=== PATIENT | female | born 1940 | race African-American/Black ===

== ENCOUNTER → 2017-10-23 | Day surgery (SDC) | payer MEDICARE, BC ==
--- NOTE | 2017-10-23 15:34 | RAD ---
RIGHT HIP 2 VIEWS: HISTORY: Pain. COMPARISON: None. FINDINGS: There is mild to moderate loss of joint space height. Contour of the femoral head is maintained. No fracture. IMPRESSION: Mild to moderate degenerative change. POS: PUJA
== END ==
LOC: RAD 14:58 → ERS 14:58 → EDSTATUS 15:34
DX: M25.551 Pain in right hip (principal); Z88.8 Allergy status to other drugs, medicaments and biological substances; Z88.6 Allergy status to analgesic agent; W19.XXXA Unspecified fall, initial encounter

== ENCOUNTER 2018-05-29 17:03 | Emergency (ER) | payer MEDICARE, BC ==
[2018-05-29] MEDS ORDERED: ALPRAZolam 0.25 MG TAB ONE (19:13)
== END 2018-05-29 19:30 | disposition home or self-care (01) ==
LOC: ERS 17:03
DX: E10.42 Type 1 diabetes mellitus with diabetic polyneuropathy (principal); F41.9 Anxiety disorder, unspecified; E78.5 Hyperlipidemia, unspecified; I10 Essential (primary) hypertension; Z79.84 Long term (current) use of oral hypoglycemic drugs; Z79.899 Other long term (current) drug therapy
CPT/HCPCS: 99283

== ENCOUNTER 2020-02-07 15:04 | Inpatient (IN) | payer MEDICARE, BC ==
[2020-02-07 15:38] LABS: Bilirubin Negative (Negative); Blood, Urine Negative (Negative); Glucose, Urine (Dipstick) Negative (Negative); Ketone, Urine Negative (Negative); Leukocyte Moderate (Negative); Nitrite Negative (Negative); Protein, Urine (Dipstick) Negative (Neg-Trace); Urobilinogen 0.2 mg/dL (Less than 2); pH, Urine 5.5 (5.0-9.0)
[2020-02-07 15:42] LABS: Clarity Clear (Clear)
[2020-02-07] MEDS ORDERED: Cefepime 2 GM VIAL ONE (15:43)
[2020-02-07] MEDS ORDERED: Sodium Chloride 0.9% 100 ML ONE (15:43)
[2020-02-07 15:44] LABS: Bacteria/HPF 4+ HPF (None Seen); RBC/HPF None Seen HPF (0-3); Squamous Epithelial 0-3 HPF (0-3); WBC/HPF 21-50 HPF (0-3)
[2020-02-07 15:44] LABS: #Lymphocytes 1.4 thou/uL (1.20-3.40); #Monocytes 0.7 thou/uL (0.11-0.59); #Neutrophils 17.7 thou/uL (1.40-6.50); %Basophils 0.2 % (0.0-1.0); %Eosinophils 0.1 % (0.0-10.0); %Lymphocytes 7.2 % (21.0-51.0); %Monocytes 3.7 % (0.0-10.0); %Neutrophils 88.8 % (42.0-75.0); Hemoglobin 11.3 g/dL (12.0-16.0); Mean Corpuscular Hemoglobin 27.8 pg (27.0-31.0); Mean Corpuscular Volume 84.3 fL (78.0-98.0); Mean Platelet Volume 10.5 fL (7.4-10.4); Platelet Count 218 thou/uL (130-400); RBC Distribution Width 13.6 % (11.5-14.5); Red Blood Cell (RBC) Count 4.07 mill/uL (4.20-5.40); White Blood Cell (WBC) Count 19.9 thou/uL (4.8-10.8)
--- NOTE | 2020-02-07 15:44 | RAD ---
PORTABLE CHEST ONE VIEW: 02/07/20 at 3:35 p.m. HISTORY: Fever. COMPARISON: 05/10/13. FINDINGS: The heart size is borderline. The aorta is tortuous. The lungs are well expanded without lobar consol idation, pneumothoraces, jt pulmonary edema or pleural effusions. IMPRESSION: No radiographic evidence of acute cardiopulmonary process. POS: AH
[2020-02-07 16:06] LABS: ALT (SGPT) 7 U/L (8-55); AST (SGOT) 21 U/L (5-34); Albumin 3.6 g/dL (3.4-4.8); Alkaline Phosphatase 68 U/L (40-110); Anion Gap 16 mmol/L (10-20); BUN (Urea Nitrogen) 56 mg/dL (9.8-20.1); Bilirubin, Total 0.7 mg/dL (0.2-1.2); CK (CPK) 262 U/L (29-168); Calc. Creatinine Clearance 0 mL/min (70-130); Calcium 9.3 mg/dL (7.8-10.44); Carbon Dioxide 25 mmol/L (23-31); Chloride 105 mmol/L (98-107); Globulin 4.2 g/dL (2.4-3.5); Glucose 215 mg/dL (83-110); Magnesium 2.2 mg/dL (1.6-2.6); Potassium 3.3 mmol/L (3.5-5.1); Protein, Total 7.8 g/dL (6.0-8.3); Sodium 143 mmol/L (136-145)
[2020-02-07] MEDS ORDERED: Vancomycin 1 GM/200 ML BAG ONE (16:12)
--- NOTE | 2020-02-07 16:12 | RAD ---
Exam: XR Knee Rt 4 View STANDARD HISTORY: Trauma. Fever. COMPARISON: None FINDINGS: There is tricompartment osteophytosis. Mild narrowing of the medial and lateral joint compartments is present. No fracture, dislocation, or other osseous abnormality is identified. Small to moderate-sized suprapatellar joint effusion is present. There are prominent calcifications seen poste rior to the knee joint which could be related to intra-articular loose bodies within a Branch's cyst. However, this cannot be confirmed on this exam. Vascular calcifications are seen posterior to t he knee. IMPRESSION: 1. Osteoarthritis without evidence of an acute osseous abnormality. 2. Small to moderate-sized suprapatellar joint effusion. 3. Calcifications posterior to the right knee which may represent intra-articular loose bodies within a Branch's cyst.
[2020-02-07] MEDS ORDERED: Calcium Carbonate 500 MG ChewTAB PO PRN (16:43)
[2020-02-07] MEDS ORDERED: Bisacodyl 10 MG SUPP PR PRN (16:43)
[2020-02-07] MEDS ORDERED: Ondansetron PF 4 MG/2 ML Vial IVP PRN (16:43)
[2020-02-07] MEDS ORDERED: Dextrose 50% Abboject 50 ML SYRINGE SLOW IVP PRN (16:43)
[2020-02-07] MEDS ORDERED: ALPRAZolam 0.5 MG TAB PO PRN (16:43)
[2020-02-07] MEDS ORDERED: Guaifenesin DM 100-10/5 ML UDCUP PO PRN (16:43)
[2020-02-07] MEDS ORDERED: Dextrose 5% in Water 1,000 ML IV PRN (16:43)
[2020-02-07] MEDS ORDERED: Senokot S 8.6-50 MG TAB PO PRN (16:43)
[2020-02-07] MEDS ORDERED: HumaLOG 300 UNITS/3 ML VIAL SC PRN (16:43)
[2020-02-07] MEDS ORDERED: Diltiazem 125 MG in Sodium Chloride 0.9% 100 ML IVPB SCH (16:45)
[2020-02-07] MEDS ORDERED: Diltiazem 125 MG/25 ML ONE (17:06)
[2020-02-07] MEDS: Pregabalin 75 MG CAP PO SCH (20:26)
[2020-02-07] MEDS: Metoprolol Tartrate 100 MG TAB PO SCH (20:27)
[2020-02-07] MEDS: Acetaminophen 325 MG TAB PO PRN (20:27)
[2020-02-07] MEDS: Sodium Chloride 0.9% 1,000 ML IV SCH (20:29)
--- NOTE | 2020-02-07 20:43 | HP ---
REASON FOR ADMISSION: AFib with RVR, sepsis, UTI. HISTORY OF PRESENTING ILLNESS: The patient gives history of having fallen on the floor around 8:30 in the morning. She was apparently on the floor until 2:30, when she was found she was very cold on the floor to touch and was very anxious as well. The family made her feel better and she got to sleep a little. All of this happened yesterday. This morning, granddaughter called her, but she did not answer the phone. Neighbor went to see her, she was incoherent and was talking out of it. The patient also developed chills and fever. EMS was summoned and the patient was brought here. No complaints of abdominal pain, nausea, or vomiting. No cough or expectoration as such. No complaints of chest pain or palpitation. PAST MEDICAL AND SURGICAL HISTORY: Diabetes mellitus type 2, history of bowel obstruction with surgery, dyslipidemia, hypertension, cataract surgery, appendectomy, cholecystectomy, hysterectomy, anxiety disorder, chronic back pain. CURRENT MEDICATIONS: The patient takes: 1. Hydrochlorothiazide 25 mg daily. 2. Metformin 500 mg daily. 3. Rosuvastatin 5 mg daily. 4. Amitiza 8 mcg twice daily. 5. Lyrica 150 mg daily. 6. Metoprolol 100 mg twice daily. 7. Levothyroxine 112 mcg p.o. daily. 8. Premarin 0.3 mg daily. 9. Procardia XL 60 mg p.o. daily. 10. Nexium 40 mg p.o. daily. ALLERGIES: ALLERGIC TO ATORVASTATIN, LISINOPRIL, AND MELOXICAM. PERSONAL HISTORY: Does not abuse alcohol or drugs. No history of smoking. She lives with her son. Ambulates with a walker, but for the most part, she forgets to take the walker with her. FAMILY HISTORY: Mother at the age of 85 from natural causes. Father at the age of 65 from unknown cause. CODE STATUS: The patient wants to be do not attempt to resuscitate. Power of assistant city attorney is her son, Mr. Mihai Brizuela. REVIEW OF SYSTEMS: CONSTITUTIONAL: Negative for weight loss or gain, ability to conduct usual activities. SKIN: Negative for rash, itching. EYES: Negative for double vision, pain. ENT/MOUTH: Negative for nose bleeding, neck stiffness, pain, tenderness. CARDIOVASCULAR: Negative for palpitations, dyspnea on exertion, orthopnea. RESPIRATORY: Negative for shortness of breath, wheezing, cough, hemoptysis, fever or night sweats. GASTROINTESTINAL: Negative for poor appetite, abdominal pain, heartburn, nausea, vomiting, constipation, or diarrhea. GENITOURINARY: Negative for urgency, frequency, dysuria, nocturia. MUSCULOSKELETAL: Negative for pain, swelling. NEUROLOGIC/PSYCHIATRIC: Negative for anxiety, depression. ALLERGY/IMMUNOLOGIC: Negative for skin rash, bleeding tendency. PHYSICAL EXAMINATION: GENERAL: The patient is an 80-year-old female, who is currently in mild distress from chills and rigors. VITAL SIGNS: Blood pressure 132/70, pulse 90 to 130 per minute, respiratory rate 24 per minute, temperature 102.7 degrees Fahrenheit, saturating 93% on 2 L nasal cannula. NECK: Supple. No elevated JVD. HEENT: Eyes, extraocular muscles intact. Pupils reacting to light. Oral cavity, mucous membranes are dry. No exudates or congestion. CARDIOVASCULAR SYSTEM: S1, S2 heard. Irregular rhythm. RESPIRATORY SYSTEM: Air entry 1+ bilateral. Scattered rhonchi plus no rales or wheezes. ABDOMEN: Soft. Bowel sounds heard. No tenderness, rigidity, or guarding. EXTREMITIES: No peripheral edema or calf tenderness. VASCULAR SYSTEM: Peripheral pulses 1+, bilateral. No ischemic ulcerations or gangrene. CENTRAL NERVOUS SYSTEM: No gross focal motor deficits noted. The patient is alert, awake, and oriented well. PSYCHIATRIC SYSTEM: The patient's mood is a bit anxious. Otherwise, no hallucinations or delusions. LABORATORY DATA: EKG done shows AFib with RVR at 136 beats per minute. There is Q-wave seen in lead II, III, aVF, and poor R-wave progression. White count of 19, H and H 11 and 34, platelet count 218, MCV 84 with 88% neutrophils. Potassium 3.3, BUN 56, creatinine 2.0, serum bicarb 25, serum glucose 215. Liver enzymes are within normal limits. CK level is 262. Albumin is 3.6. TSH is very low. Procalcitonin 0.40. UA shows moderate leukocyte esterase with 4+ bacteria. Right knee 4-view x-ray done shows signs of osteoarthritis. There is moderate-sized suprapatellar joint effusion. There is calcification posterior to the right knee, which may represent intra-articular loose bodies within a Branch cyst. Chest x- ray done shows no acute cardiopulmonary process. CLINICAL IMPRESSION AND PLAN: The patient will be admitted to telemetry for atrial fibrillation with rapid ventricular response, sepsis, urinary tract infection, acute kidney injury as well. The patient will be gently hydrated with normal saline at 60 mL/hour. She has received a liter of IV fluid in the ER and is currently feeling short of breath. We will try to rate control her atrial fibrillation with rapid ventricular response and volume hydrate her in the morning. She will be receiving 15 mg IV push Cardizem and 5 mg an hour Cardizem drip. Blood and urine cultures have been obtained in the ER. She will be on cefepime and vancomycin for now. We will continue Xanax p.r.n., Premarin, Lopressor at 100 mg twice daily that is the home dose, Lyrica, VESIcare for now. Echo with 2D Doppler will be obtained for left ventricular function and to rule out thrombus. COVID-19 PCR is pending. Airborne and droplet precautions can be discontinued if her COVID PCR is negative. It is unclear if the patient had recent change in her levothyroxine dose, repeat TSH will be obtained in the morning along with free T3 and free T4. One dose of potassium replacement will be done for now. Her CK levels are stable for now, though she was on the floor for nearly 6 hours yesterday. Job ID: [id number] MTDD
[2020-02-07 23:06] VITALS: BMI 27.3
[2020-02-07] MEDS: traMADol HCl 50 MG TAB PO PRN (23:44)
[2020-02-08] MEDS ORDERED: Cefepime 1 GM in Sodium Chloride 0.9% 100 ML IVPB SCH (02:00)
[2020-02-08] MEDS: Acetaminophen 325 MG TAB PO PRN ×2 (03:11→21:14)
[2020-02-08] MEDS: Cefepime 1 GM in Sodium Chloride 0.9% 100 ML IVPB SCH ×2 (03:11→14:08)
[2020-02-08 03:33] LABS: SARS-CoV-2 MS2 Positive; SARS-CoV-2 N Gene Negative; SARS-CoV-2 S Gene Negative; SARS-CoV-2 by NAA Not Detected (NotDetected); SARS-CoV-2 orf1ab Negative
[2020-02-08 04:57] LABS: #Lymphocytes 1.8 thou/uL (1.20-3.40); #Monocytes 1.4 thou/uL (0.11-0.59); #Neutrophils 14.3 thou/uL (1.40-6.50); %Basophils 0.2 % (0.0-1.0); %Eosinophils 0.1 % (0.0-10.0); %Lymphocytes 10.4 % (21.0-51.0); %Neutrophils 81.3 % (42.0-75.0); Hemoglobin 9.2 g/dL (12.0-16.0); Mean Corpuscular HGB CONC 32.4 g/dL (32.0-36.0); Mean Corpuscular Hemoglobin 27.4 pg (27.0-31.0); Mean Corpuscular Volume 84.7 fL (78.0-98.0); Mean Platelet Volume 10.6 fL (7.4-10.4); Platelet Count 191 thou/uL (130-400); RBC Distribution Width 13.6 % (11.5-14.5); Red Blood Cell (RBC) Count 3.37 mill/uL (4.20-5.40); White Blood Cell (WBC) Count 17.6 thou/uL (4.8-10.8)
[2020-02-08 05:24] LABS: Anion Gap 14 mmol/L (10-20); BUN (Urea Nitrogen) 57 mg/dL (9.8-20.1); Calc. Creatinine Clearance 30 mL/min (70-130); Calcium 8.4 mg/dL (7.8-10.44); Carbon Dioxide 23 mmol/L (23-31); Chloride 106 mmol/L (98-107); Glucose 164 mg/dL (83-110); Potassium 3.3 mmol/L (3.5-5.1); Sodium 140 mmol/L (136-145)
[2020-02-08 05:37] LABS: Thyroid Stimulating Hormone Less than 0.0025 uIU/mL (0.35-4.94)
[2020-02-08] MEDS ORDERED: Levothyroxine Sodium 112 MCG TAB PO SCH (06:00)
[2020-02-08 06:33] LABS: Free T4 (Free Thyroxine) 2.24 ng/dL (0.70-1.48)
[2020-02-08] MEDS: Pregabalin 75 MG CAP PO SCH ×3 (08:52→20:43)
[2020-02-08] MEDS: Potassium Chloride 20 MEQ TAB PO SCH ×2 (08:53→17:13)
[2020-02-08] MEDS: Estrogens, Conjugated 0.3 MG TAB PO SCH (08:53)
[2020-02-08] MEDS: Trospium 20 MG TAB PO SCH (08:53)
[2020-02-08] MEDS: Metoprolol Tartrate 100 MG TAB PO SCH (08:53)
[2020-02-08] MEDS ORDERED: Fish Oil 1,000 MG CAP PO SCH (09:00)
[2020-02-08] MEDS: Sodium Chloride 0.9% 1,000 ML IV SCH (11:49)
[2020-02-08] MEDS: HumaLOG 300 UNITS/3 ML VIAL SC PRN ×2 (11:54→17:13)
--- NOTE | 2020-02-08 13:02 | CON ---
DATE OF CONSULTATION: HISTORY OF PRESENT ILLNESS: The patient is an 80-year-old woman, who presented after having a fall. The patient has a history of hypertension and diabetes mellitus. The patient was in her usual state of health when she had a fall. The patient denied having any chest discomfort. She did report having low-grade fever. She denied having any palpitations. The patient was admitted for further evaluation. The patient denies having any history of palpitations or chest discomfort. PAST MEDICAL HISTORY: 1. Diabetes mellitus. 2. Hypertension. 3. Thyroid disorder. 4. Dyslipidemia. PAST SURGICAL HISTORY: Appendectomy, cholecystectomy, hysterectomy,and cataract surgery. MEDICATIONS: 1. Hydrochlorothiazide 25 daily. 2. Metformin 500 daily. 3. Crestor 5 at bedtime. 4. Lyrica 150 daily. 5. Metoprolol 100 twice a day. 6. Procardia 60 XL daily. 7. Synthroid 112 mcg daily. 8. Nexium 40 daily. ALLERGIES: LIPITOR, LISINOPRIL, AND MELOXICAM. SOCIAL HISTORY: Nonsmoker. FAMILY HISTORY: No strong family history of heart disease. REVIEW OF SYSTEMS: Ten-point system is otherwise unremarkable. No history of easy bruising or bleeding. She has not had any previous fall in the past several years. PHYSICAL EXAMINATION: GENERAL: Obese woman, in no acute distress. VITAL SIGNS: Blood pressure 103/53. NECK: Showed no jugular venous distention. LUNGS: Clear to auscultation. HEART: Regular rate and rhythm. Normal S1, S2. No murmurs. ABDOMEN: Nondistended. EXTREMITIES: Show no edema. VASCULAR: Radial pulses are 2+. LABORATORY RESULTS: White blood cell count 17.6, hemoglobin 9.2, hematocrit 28.5, platelets 191. Sodium is 140, potassium 3.3, chloride 106, bicarbonate 23, BUN 57, creatinine 1.78. Troponin was 0.016. Her T4 was 2.24, T3 was 1.99. EKG atrial fibrillation with a rapid ventricular response and possible Q-waves in the inferior leads suggestive of an inferior infarct. IMPRESSION: 1. Atrial fibrillation. 2. Diabetes mellitus. 3. Hypertension. 4. History of thyroid disorder. 5. Urinary tract infection. 6. Renal insufficiency. PLAN: This patient presents after a fall, she was noted to be in new onset atrial fibrillation and have a urinary tract infection. The patient converted with IV Cardizem. Would continue the patient on Toprol. She has a CHADS-VASc score of 4. It would be recommend the patient be placed on low-dose Eliquis. We will check the patient's echocardiogram. We will follow this patient with you through her hospitalization. Job ID: [id number] MTDD
[2020-02-08] MEDS ORDERED: Polyethylene Glycol 3350 17 GM Packet PO PRN (13:22)
--- NOTE | 2020-02-08 13:27 | PDOC.HOSPP ---
- Subjective Encounter Date: 02/08/20 (f/u UTI) Encounter Time: 13:25 Subjective: Pt reports that she is feeling better. States she wasnt feeling bad but fell at home, which led to her being here. States her appetite is back. - Objective Vital Signs & Weight: Vital Signs (12 hours) Temp Pulse Resp BP BP Pulse Ox 02/08/20 11:32 98.6 F 77 19 103/53 L 02/08/20 09:30 131/69 02/08/20 07:40 98.2 F 80 20 116/59 L 97 02/08/20 03:48 100.4 F H 96 16 106/54 L 96 Weight Weight 174 lb 9 oz I&O: 02/07/20 02/08/20 02/09/20 06:59 06:59 06:59 Intake Total 520 Output Total 100 Balance 420 Result Diagrams: 02/08/20 04:24 02/08/20 04:24 Additional Labs: Accuchecks 02/08/20 02/08/20 02/07/20 11:36 06:29 21:31 POC Glucose 187 H 168 H 220 H EKG Reviewed by me: Yes (tele - sinus 70-80's) Hospitalist ROS - Medication Medications: Active Medications Generic Name Dose Route Start Last Admin Trade Name Freq PRN Reason Stop Dose Admin Acetaminophen 650 mg 02/07/20 16:43 02/08/20 03:11 Acetaminophen 325 Mg Tab PO 650 mg Q4H PRN Administration Headache/Fever/Mild Pain (1-3) Alprazolam 0.5 mg 02/07/20 16:43 02/07/20 20:28 Alprazolam 0.5 Mg Tab PO 0.5 mg TID PRN Administration Anxiety Estrogens Conjugated 0.3 mg 02/08/20 09:00 02/08/20 08:53 Estrogens, Conjugated 0.3 Mg Tab PO 0.3 mg DAILY KADY Administration Sodium Chloride 1,000 mls @ 60 mls/hr 02/07/20 16:45 02/08/20 11:49 Normal Saline 0.9% IV 1,000 mls .[id number] KADY Administration Cefepime HCl 1 gm/ Sodium 100 mls @ 200 mls/hr 02/08/20 02:00 02/08/20 03:11 Chloride IVPB 100 mls 0200,1400 KADY Administration Insulin Human Lispro 0 units 02/07/20 16:43 02/08/20 11:54 Humalog 300 Units/3 Ml Vial SC 2 unit .MODERATE SLIDING SC PRN Administration Moderate Correctional Scale Levothyroxine Sodium 112 mcg 02/08/20 06:00 02/08/20 05:39 Levothyroxine Sodium 112 Mcg Tab PO 112 mcg 0600 KADY Administration Pantoprazole Sodium 40 mg 02/08/20 09:00 02/08/20 08:53 Pantoprazole 40 Mg Tab PO 40 mg DAILY KADY Administration Potassium Chloride 40 meq 02/08/20 08:00 02/08/20 08:53 Potassium Chloride 20 Meq Tab PO 02/08/20 17:01 40 meq BID-WM KADY Administration Pregabalin 150 mg 02/07/20 21:00 02/08/20 08:52 Pregabalin 75 Mg Cap PO 150 mg BID KADY Administration Sodium Chloride 10 ml 02/08/20 09:00 02/08/20 08:54 Flush - Normal Saline 10 Ml Syringe IVF 10 ml Q12HR KADY Administration Tramadol HCl 50 mg 02/07/20 23:35 02/07/20 23:44 Tramadol Hcl 50 Mg Tab PO 50 mg TID PRN Administration Pain Trospium 20 mg 02/08/20 09:00 02/08/20 08:53 Trospium 20 Mg Tab PO 20 mg DAILY KADY Administration - Exam General Appearance: NAD Heart: RRR, no murmur Respiratory: CTAB, no wheezes, no rales, no ronchi Gastrointestinal: soft, non-tender, non-distended, normal bowel sounds Extremities: no cyanosis, no clubbing, no edema Psychiatric: normal affect Hosp A/P (1) Atrial fibrillation with RVR Code(s): I48.91 - UNSPECIFIED ATRIAL FIBRILLATION Status: Resolved (2) UTI (urinary tract infection) Status: Acute (3) Bacteremia Code(s): R78.81 - BACTEREMIA Status: Suspected (4) CHERYL (acute kidney injury) Code(s): N17.9 - ACUTE KIDNEY FAILURE, UNSPECIFIED Status: Acute (5) Hyperthyroidism Code(s): E05.90 - THYROTOXICOSIS, UNSP WITHOUT THYROTOXIC CRISIS OR STORM Status: Chronic (6) Hypertension Code(s): I10 - ESSENTIAL (PRIMARY) HYPERTENSION Status: Chronic Qualifiers: Hypertension type: essential hypertension Qualified Code(s): I10 - Essential (primary) hypertension (7) Dyslipidemia Code(s): E78.5 - HYPERLIPIDEMIA, UNSPECIFIED Status: Chronic (8) GERD (gastroesophageal reflux disease) Code(s): K21.9 - GASTRO-ESOPHAGEAL REFLUX DISEASE WITHOUT ESOPHAGITIS Status: Chronic - Plan A fib with rvr - resolved - appreciate cards consult - on metoprolol HTN - low/normal bp's - continue metoprolol only Hyperthyroid - levothyroxine at current dose d/c - need to resume a lower dose of levothyroxine at discharge CHERYL - improved, will continue gentle IVF hydration Possible constipation - start miralax now and order prn daily. UTI - continue cefepime and vanc - follow culture positive blood culture - follow and continue current abx PT/OT dvt prophy - on eliquis gi prophy - not indicated code status DNAR reviewed plan of care wiht patient/RN, no questions or further needs at end of eval.
[2020-02-08] MEDS ORDERED: Polyethylene Glycol 3350 17 GM Packet PO SCH (13:30)
[2020-02-08] MEDS ORDERED: Vancomycin HCl 750 MG in Sodium Chloride 0.9% 250 ML 250 ML IVPB SCH (15:00)
[2020-02-08] MEDS: Vancomycin HCl 500 MG in Sodium Chloride 0.9% 100 ML IVPB SCH (15:47)
[2020-02-08] MEDS: Apixaban 2.5 MG TAB PO SCH (20:40)
[2020-02-08] MEDS: Rosuvastatin 5 MG TAB PO SCH (20:43)
[2020-02-08] MEDS: Lubiprostone 8 MCG CAP PO SCH (21:00)
[2020-02-09] MEDS: Sodium Chloride 0.9% 1,000 ML IV SCH (02:10)
[2020-02-09] MEDS: Cefepime 1 GM in Sodium Chloride 0.9% 100 ML IVPB SCH ×2 (02:20→14:02)
[2020-02-09 04:05] LABS: #Basophils 0.1 thou/uL (0.0-0.2); #Eosinphils 0.1 thou/uL (0.0-0.7); #Lymphocytes 2.3 thou/uL (1.20-3.40); #Monocytes 1.2 thou/uL (0.11-0.59); #Neutrophils 13.4 thou/uL (1.40-6.50); %Basophils 0.5 % (0.0-1.0); %Eosinophils 0.6 % (0.0-10.0); %Lymphocytes 13.3 % (21.0-51.0); %Monocytes 7.2 % (0.0-10.0); %Neutrophils 78.4 % (42.0-75.0); Hemoglobin 9.4 g/dL (12.0-16.0); Mean Corpuscular HGB CONC 32.5 g/dL (32.0-36.0); Mean Corpuscular Hemoglobin 27.4 pg (27.0-31.0); Mean Corpuscular Volume 84.5 fL (78.0-98.0); Mean Platelet Volume 11.1 fL (7.4-10.4); Platelet Count 200 thou/uL (130-400); RBC Distribution Width 13.9 % (11.5-14.5); Red Blood Cell (RBC) Count 3.42 mill/uL (4.20-5.40); White Blood Cell (WBC) Count 17.1 thou/uL (4.8-10.8)
[2020-02-09 04:22] LABS: Anion Gap 15 mmol/L (10-20); BUN (Urea Nitrogen) 54 mg/dL (9.8-20.1); Calc. Creatinine Clearance 34 mL/min (70-130); Calcium 8.5 mg/dL (7.8-10.44); Carbon Dioxide 20 mmol/L (23-31); Chloride 110 mmol/L (98-107); Glucose 135 mg/dL (83-110); Magnesium 2.2 mg/dL (1.6-2.6); Potassium 4.2 mmol/L (3.5-5.1); Sodium 141 mmol/L (136-145)
[2020-02-09] MEDS: Trospium 20 MG TAB PO SCH (08:56)
[2020-02-09] MEDS: Estrogens, Conjugated 0.3 MG TAB PO SCH (08:56)
[2020-02-09] MEDS: Apixaban 2.5 MG TAB PO SCH ×2 (08:56→20:29)
[2020-02-09] MEDS: Lubiprostone 8 MCG CAP PO SCH ×2 (08:56→20:29)
[2020-02-09] MEDS: Pregabalin 75 MG CAP PO SCH ×2 (08:57→20:28)
--- NOTE | 2020-02-09 09:24 | PDOC.HOSPP ---
- Subjective Encounter Date: 02/09/20 (f/u CHERYL) Encounter Time: 09:23 Subjective: Pt without complaints this morning. Oxygen weaned off. She denies any pain or problems currently. - Objective Vital Signs & Weight: Vital Signs (12 hours) Temp Pulse Resp BP Pulse Ox 02/09/20 09:03 92 L 02/09/20 07:29 98.2 F 77 23 H 99/55 L 98 02/09/20 04:15 98.2 F 90 16 114/53 L 95 02/08/20 21:44 99.6 F Weight Weight 174 lb 9 oz I&O: 02/08/20 02/09/20 02/10/20 06:59 06:59 06:59 Intake Total 520 3110 Output Total 100 550 Balance 420 2560 Result Diagrams: 02/09/20 03:04 02/09/20 03:04 Additional Labs: Accuchecks 02/09/20 02/08/20 02/08/20 06:10 20:59 16:27 POC Glucose 116 H 175 H 190 H 02/08/20 11:36 POC Glucose 187 H EKG Reviewed by me: Yes (tele - sinus 70-100's, MAT brief.) Hospitalist ROS - Medication Medications: Active Medications Generic Name Dose Route Start Last Admin Trade Name Freq PRN Reason Stop Dose Admin Acetaminophen 650 mg 02/07/20 16:43 02/08/20 21:14 Acetaminophen 325 Mg Tab PO 650 mg Q4H PRN Administration Headache/Fever/Mild Pain (1-3) Alprazolam 0.5 mg 02/07/20 16:43 02/07/20 20:28 Alprazolam 0.5 Mg Tab PO 0.5 mg TID PRN Administration Anxiety Apixaban 2.5 mg 02/08/20 21:00 02/09/20 08:56 Apixaban 2.5 Mg Tab PO 2.5 mg BID KADY Administration Estrogens Conjugated 0.3 mg 02/08/20 09:00 02/09/20 08:56 Estrogens, Conjugated 0.3 Mg Tab PO 0.3 mg DAILY KADY Administration Vancomycin HCl 500 mg/ Sodium 100 mls @ 100 mls/hr 02/08/20 15:00 02/08/20 15:47 Chloride IVPB 100 mls 1500 KADY Administration Cefepime HCl 1 gm/ Sodium 100 mls @ 200 mls/hr 12/05/20 02:00 02/09/20 02:20 Chloride IVPB 100 mls 0200,1400 KADY Administration Insulin Human Lispro 0 units 02/07/20 16:43 02/08/20 17:13 Humalog 300 Units/3 Ml Vial SC 2 unit .MODERATE SLIDING SC PRN Administration Moderate Correctional Scale Levothyroxine Sodium 112 mcg 02/08/20 06:00 02/08/20 05:39 Levothyroxine Sodium 112 Mcg Tab PO 112 mcg 0600 KADY Administration Lubiprostone 8 mcg 02/08/20 21:00 02/09/20 08:56 Lubiprostone 8 Mcg Cap PO 8 mcg BID KADY Administration Metoprolol Succinate 100 mg 02/08/20 21:00 02/09/20 08:56 Metoprolol Succinate Xl 100 Mg Tab PO 100 mg BID KADY Administration Pantoprazole Sodium 40 mg 02/08/20 09:00 02/09/20 08:56 Pantoprazole 40 Mg Tab PO 40 mg DAILY KADY Administration Pregabalin 150 mg 02/07/20 21:00 02/09/20 08:57 Pregabalin 75 Mg Cap PO 150 mg BID KADY Administration Rosuvastatin Calcium 5 mg 02/08/20 21:00 02/08/20 20:43 Rosuvastatin 5 Mg Tab PO 5 mg HS KADY Administration Sodium Chloride 10 ml 02/08/20 09:00 02/09/20 08:59 Flush - Normal Saline 10 Ml Syringe IVF Not Given Q12HR KADY Tramadol HCl 50 mg 02/07/20 23:35 02/07/20 23:44 Tramadol Hcl 50 Mg Tab PO 50 mg TID PRN Administration Pain Trospium 20 mg 02/08/20 09:00 02/09/20 08:56 Trospium 20 Mg Tab PO 20 mg DAILY KADY Administration - Exam General Appearance: NAD Heart: RRR, no murmur Respiratory - other findings: bi-basilar rales, good air movement, no rhonchi Gastrointestinal: soft, non-tender, non-distended, normal bowel sounds Extremities: no cyanosis, no clubbing, no edema Psychiatric: normal affect Hosp A/P (1) Atrial fibrillation with RVR Code(s): I48.91 - UNSPECIFIED ATRIAL FIBRILLATION Status: Resolved (2) UTI (urinary tract infection) Status: Acute (3) Bacteremia Code(s): R78.81 - BACTEREMIA Status: Suspected (4) CHERYL (acute kidney injury) Code(s): N17.9 - ACUTE KIDNEY FAILURE, UNSPECIFIED Status: Acute (5) Hyperthyroidism Code(s): E05.90 - THYROTOXICOSIS, UNSP WITHOUT THYROTOXIC CRISIS OR STORM Status: Chronic (6) Hypertension Code(s): I10 - ESSENTIAL (PRIMARY) HYPERTENSION Status: Chronic Qualifiers: Hypertension type: essential hypertension Qualified Code(s): I10 - Essential (primary) hypertension (7) Dyslipidemia Code(s): E78.5 - HYPERLIPIDEMIA, UNSPECIFIED Status: Chronic (8) GERD (gastroesophageal reflux disease) Code(s): K21.9 - GASTRO-ESOPHAGEAL REFLUX DISEASE WITHOUT ESOPHAGITIS Status: Chronic (9) Diabetes mellitus Code(s): E11.9 - TYPE 2 DIABETES MELLITUS WITHOUT COMPLICATIONS Status: Chronic Qualifiers: Diabetes mellitus type: type 2 Diabetes mellitus senior care insulin use: without marine oil terminal superintendent use - Plan A fib with rvr - resolved - appreciate cards consult - on metoprolol - bp's low/low-normal - monitor HTN - low/normal bp's - continue metoprolol only Hyperthyroid - levothyroxine d/c yesterday - plan to hold for a few days - will need to start a lower dose prior to discharge and plan for f/u in 6 weeks for repeat TSH with PCP. CHERYL - improved with hydration - d/c IVF as I'm concerned for volume overload - monitor breathing - if any concerns will use IV lasix. Echo reviewed and normal EF Diabetes mellitus - well controlled Possible constipation - continue prn meds UTI - continue cefepime and vanc - Culture shows mckeon-sensitive Kleibsiella. positive blood culture (1 set and likely contaminant) with persistently elevated WBC count - check renal ultrasound - continue Vanc and cefepime for now - add florastor PT/OT dvt prophy - on eliquis gi prophy - not indicated code status DNAR reviewed plan of care wiht patient/RN, no questions or further needs at end of eval. Pt's granddaughter updated by phone yesterday.
--- NOTE | 2020-02-09 13:05 | ULT ---
RENAL ULTRASOUND: HISTORY: UTI. FINDINGS: The right kidney measures 9.3 cm length. The left kidney measures approximately 8 cm length. The left kidney is somewhat obscured by bowel ga s. There is no hydronephrosis. The cortical thickness and echogenicity appears preserved. Urinary bladder is mildly distended and unremarkable. IMPRESSION: Unremarkable renal ultrasound. Superior pole of the left kidney is obscured by bowel gas. The left kidney appears unremarkable as visualized. POS: AGW
[2020-02-09] MEDS: Vancomycin HCl 500 MG in Sodium Chloride 0.9% 100 ML IVPB SCH (15:23)
[2020-02-09] MEDS ORDERED: Vancomycin HCl 500 MG in Sodium Chloride 0.9% 100 ML IVPB SCH (18:30)
[2020-02-09] MEDS: Rosuvastatin 5 MG TAB PO SCH (20:29)
[2020-02-09] MEDS: Acetaminophen 325 MG TAB PO PRN (20:29)
[2020-02-10] MEDS: traMADol HCl 50 MG TAB PO PRN (01:36)
[2020-02-10] MEDS: Cefepime 1 GM in Sodium Chloride 0.9% 100 ML IVPB SCH (01:37)
[2020-02-10 03:41] LABS: #Eosinphils 0.1 thou/uL (0.0-0.7); #Lymphocytes 1.7 thou/uL (1.20-3.40); #Monocytes 0.8 thou/uL (0.11-0.59); #Neutrophils 11.5 thou/uL (1.40-6.50); %Basophils 0.3 % (0.0-1.0); %Eosinophils 1.1 % (0.0-10.0); %Lymphocytes 11.7 % (21.0-51.0); %Monocytes 5.8 % (0.0-10.0); %Neutrophils 81.2 % (42.0-75.0); Hemoglobin 9.6 g/dL (12.0-16.0); Mean Corpuscular HGB CONC 32.6 g/dL (32.0-36.0); Mean Corpuscular Hemoglobin 27.6 pg (27.0-31.0); Mean Corpuscular Volume 84.8 fL (78.0-98.0); Mean Platelet Volume 10.9 fL (7.4-10.4); Platelet Count 224 thou/uL (130-400); RBC Distribution Width 13.9 % (11.5-14.5); Red Blood Cell (RBC) Count 3.46 mill/uL (4.20-5.40); White Blood Cell (WBC) Count 14.2 thou/uL (4.8-10.8)
[2020-02-10 03:59] LABS: Anion Gap 13 mmol/L (10-20); BUN (Urea Nitrogen) 38 mg/dL (9.8-20.1); Calc. Creatinine Clearance 46 mL/min (70-130); Calcium 8.5 mg/dL (7.8-10.44); Carbon Dioxide 20 mmol/L (23-31); Chloride 111 mmol/L (98-107); Glucose 129 mg/dL (83-110); Potassium 3.9 mmol/L (3.5-5.1); Sodium 140 mmol/L (136-145)
[2020-02-10] MEDS: Lubiprostone 8 MCG CAP PO SCH ×2 (08:30→21:36)
[2020-02-10] MEDS: Trospium 20 MG TAB PO SCH (08:31)
[2020-02-10] MEDS: Pregabalin 75 MG CAP PO SCH ×2 (08:31→21:39)
[2020-02-10] MEDS: Estrogens, Conjugated 0.3 MG TAB PO SCH (08:31)
[2020-02-10] MEDS: Saccharomyces boulardii 250 MG CAP PO SCH (08:31)
[2020-02-10] MEDS ORDERED: Apixaban 2.5 MG TAB PO SCH (09:00)
[2020-02-10] MEDS ORDERED: Loperamide HCl 2 MG CAP PO PRN (09:46)
--- NOTE | 2020-02-10 09:49 | PDOC.HOSPP ---
- Subjective Encounter Date: 02/10/20 (f/u UTI) Encounter Time: 09:47 Subjective: Pt admitted for A Fib with RVR, UTI and CHERYL with CKD. She has responded well to antibiotics, IVF, and tx by Cardiology. Pt reports feeling better overall. She's had diarrhea - c diff test negative. She has only worked with PT once here and is uncertain about her strength. She denies any n/v/abd pain. She denies any other concerns. - Objective Vital Signs & Weight: Vital Signs (12 hours) Temp Pulse Resp BP Pulse Ox 02/10/20 07:43 97.8 F 86 16 118/61 100 02/10/20 03:14 98.4 F 87 18 122/77 95 02/10/20 00:00 98.4 F Weight Weight 174 lb 9 oz I&O: 02/09/20 02/10/20 02/11/20 06:59 06:59 06:59 Intake Total 3110 1460 Output Total 550 1000 Balance 2560 460 Result Diagrams: 02/10/20 03:04 02/10/20 03:04 Additional Labs: Accuchecks 02/10/20 02/09/20 02/09/20 06:07 19:28 17:25 POC Glucose 116 H 143 H 148 H 02/09/20 10:57 POC Glucose 176 H EKG Reviewed by me: Yes (tele - sinus 70-80's, MAT 100's) Hospitalist ROS - Medication Medications: Active Medications Generic Name Dose Route Start Last Admin Trade Name Freq PRN Reason Stop Dose Admin Acetaminophen 650 mg 02/07/20 16:43 02/09/20 20:29 Acetaminophen 325 Mg Tab PO 650 mg Q4H PRN Administration Headache/Fever/Mild Pain (1-3) Alprazolam 0.5 mg 02/07/20 16:43 02/07/20 20:28 Alprazolam 0.5 Mg Tab PO 0.5 mg TID PRN Administration Anxiety Apixaban 5 mg 02/10/20 09:00 02/10/20 08:30 Apixaban 2.5 Mg Tab PO 5 mg BID KADY Administration Estrogens Conjugated 0.3 mg 02/08/20 09:00 02/10/20 08:31 Estrogens, Conjugated 0.3 Mg Tab PO 0.3 mg DAILY KADY Administration Insulin Human Lispro 0 units 02/07/20 16:43 02/08/20 17:13 Humalog 300 Units/3 Ml Vial SC 2 unit .MODERATE SLIDING SC PRN Administration Moderate Correctional Scale Lubiprostone 8 mcg 02/08/20 21:00 02/10/20 08:30 Lubiprostone 8 Mcg Cap PO 8 mcg BID KADY Administration Metoprolol Succinate 150 mg 02/10/20 09:00 02/10/20 08:31 Metoprolol Succinate Xl 100 Mg Tab PO 150 mg BID KADY Administration Pantoprazole Sodium 40 mg 02/08/20 09:00 02/10/20 08:31 Pantoprazole 40 Mg Tab PO 40 mg DAILY KADY Administration Pregabalin 150 mg 02/07/20 21:00 02/10/20 08:31 Pregabalin 75 Mg Cap PO 150 mg BID KADY Administration Rosuvastatin Calcium 5 mg 02/08/20 21:00 02/09/20 20:29 Rosuvastatin 5 Mg Tab PO 5 mg HS KADY Administration Saccharomyces Boulardii 250 mg 02/10/20 09:00 02/10/20 08:31 Saccharomyces Boulardii 250 Mg Cap PO 250 mg DAILY KADY Administration Sodium Chloride 10 ml 02/08/20 09:00 02/10/20 08:32 Flush - Normal Saline 10 Ml Syringe IVF 10 ml Q12HR KADY Administration Tramadol HCl 50 mg 02/07/20 23:35 02/10/20 01:36 Tramadol Hcl 50 Mg Tab PO 50 mg TID PRN Administration Pain Trospium 20 mg 02/08/20 09:00 02/10/20 08:31 Trospium 20 Mg Tab PO 20 mg DAILY KADY Administration - Exam General Appearance: NAD Heart: RRR, no murmur Respiratory: no wheezes, no ronchi Respiratory - other findings: faint rales at the left base Gastrointestinal: soft, non-tender, non-distended, normal bowel sounds Extremities: no cyanosis, no clubbing, no edema Psychiatric: normal affect Hosp A/P (1) Atrial fibrillation with RVR Code(s): I48.91 - UNSPECIFIED ATRIAL FIBRILLATION Status: Resolved (2) UTI (urinary tract infection) Status: Acute (3) Bacteremia Code(s): R78.81 - BACTEREMIA Status: Resolved (4) CHERYL (acute kidney injury) Code(s): N17.9 - ACUTE KIDNEY FAILURE, UNSPECIFIED Status: Resolved (5) Hyperthyroidism Code(s): E05.90 - THYROTOXICOSIS, UNSP WITHOUT THYROTOXIC CRISIS OR STORM Status: Chronic (6) Hypertension Code(s): I10 - ESSENTIAL (PRIMARY) HYPERTENSION Status: Chronic Qualifiers: Hypertension type: essential hypertension Qualified Code(s): I10 - Essential (primary) hypertension (7) Dyslipidemia Code(s): E78.5 - HYPERLIPIDEMIA, UNSPECIFIED Status: Chronic (8) GERD (gastroesophageal reflux disease) Code(s): K21.9 - GASTRO-ESOPHAGEAL REFLUX DISEASE WITHOUT ESOPHAGITIS Status: Chronic (9) Diabetes mellitus Code(s): E11.9 - TYPE 2 DIABETES MELLITUS WITHOUT COMPLICATIONS Status: Chronic Qualifiers: Diabetes mellitus type: type 2 Diabetes mellitus oil heaterman insulin use: without oil heaterman use - Plan A fib with rvr - resolved. Pt with MAT overnight - appreciate cards consult - on metoprolol and dose adjusted today HTN - low/normal bp's - continue metoprolol only Hyperthyroid - overtreated on home dose of levothyroxine. Dose held for 3 days. Will restart tomorrow at 100 mcg daily and request recheck in 6 weeks by PCP. CHERYL - resolved - pt back to baseline CKD - faint rales on exam - monitor, it is not causing respiratory problems. Diabetes mellitus - well controlled Diarrhea secondary to antibiotics - florastor daily - imodium prn UTI with persistent leukocytosis (although improved) - d/c vanc and cefepime - start ceftriaxone - renal ultrasound normal yesterday positive blood culture c/w contaminant PT/OT dvt prophy - on eliquis gi prophy - not indicated code status DNAR reviewed plan of care with patient, no questions or further needs at end of eval.
--- NOTE | 2020-02-10 16:34 | EKG ---
Test Reason : Blood Pressure : / mmHG Vent. Rate : 090 BPM Atrial Rate : 090 BPM P-R Int : 132 ms QRS Dur : 084 ms QT Int : 316 ms P-R-T Axes : -21 -14 014 degrees QTc Int : 386 ms Normal sinus rhythm Poor anterior R wave progression No previous ECGs available Confirmed by DR. Willie HERNANDEZ (3) on 02/10/2020 4:33:34 PM Referred By: CARLA Confirmed By:DR. Willie HERNANDEZ
[2020-02-10] MEDS ORDERED: Vancomycin 1 GM in Premix Bag 1 BAG IVPB SCH (18:30)
[2020-02-10] MEDS ORDERED: cefTRIAXone\\ROCEPHIN 2 GM in Sodium Chloride 0.9% 100 ML IVPB SCH (21:00)
[2020-02-10] MEDS: Apixaban 5 MG TAB PO SCH (21:36)
[2020-02-10] MEDS: Rosuvastatin 5 MG TAB PO SCH (21:41)
[2020-02-10] MEDS: Acetaminophen 325 MG TAB PO PRN (21:42)
[2020-02-11 04:41] LABS: #Basophils 0.1 thou/uL (0.0-0.2); #Eosinphils 0.2 thou/uL (0.0-0.7); #Monocytes 0.9 thou/uL (0.11-0.59); #Neutrophils 9.7 thou/uL (1.40-6.50); %Basophils 0.6 % (0.0-1.0); %Eosinophils 1.9 % (0.0-10.0); %Lymphocytes 15.2 % (21.0-51.0); %Monocytes 6.9 % (0.0-10.0); %Neutrophils 75.4 % (42.0-75.0); Hemoglobin 10.1 g/dL (12.0-16.0); Mean Corpuscular HGB CONC 31.9 g/dL (32.0-36.0); Mean Corpuscular Hemoglobin 26.7 pg (27.0-31.0); Mean Corpuscular Volume 83.9 fL (78.0-98.0); Mean Platelet Volume 10.4 fL (7.4-10.4); Platelet Count 242 thou/uL (130-400); RBC Distribution Width 14.2 % (11.5-14.5); Red Blood Cell (RBC) Count 3.76 mill/uL (4.20-5.40); White Blood Cell (WBC) Count 12.9 thou/uL (4.8-10.8)
[2020-02-11 05:00] LABS: Anion Gap 14 mmol/L (10-20); BUN (Urea Nitrogen) 24 mg/dL (9.8-20.1); Calc. Creatinine Clearance 55 mL/min (70-130); Calcium 8.9 mg/dL (7.8-10.44); Carbon Dioxide 22 mmol/L (23-31); Chloride 108 mmol/L (98-107); Glucose 107 mg/dL (83-110); Potassium 3.5 mmol/L (3.5-5.1); Sodium 140 mmol/L (136-145)
[2020-02-11] MEDS ORDERED: Levothyroxine Sodium 100 MCG TAB PO SCH (06:00)
[2020-02-11] MEDS: Saccharomyces boulardii 250 MG CAP PO SCH (08:24)
[2020-02-11] MEDS: Pregabalin 75 MG CAP PO SCH (08:24)
[2020-02-11] MEDS: Trospium 20 MG TAB PO SCH (08:25)
[2020-02-11] MEDS: Apixaban 5 MG TAB PO SCH (08:25)
[2020-02-11] MEDS: Estrogens, Conjugated 0.3 MG TAB PO SCH (08:25)
[2020-02-11] MEDS: Lubiprostone 8 MCG CAP PO SCH (08:25)
--- NOTE | 2020-02-11 11:48 | PQF ---
CLINICAL DOCUMENTATION CLARIFICATION FORM: Dear Dr. Danna Hammer Date: 02/11/2020. 1130 Please exercise your independent, professional judgment in responding to the clarification form. Clinical indicators are provided on the bottom of this form for your review. Please check appropriate box(es): [ ] Acute Respiratory Failure: [ ] with Hypoxia [ ] with Hypercapnia [ ] Acute On Chronic Respiratory Failure: [ ] with Hypoxia [ ] with Hypercapnia [ ] Acute Respiratory Failure due to: (etiology) [ ] ARDS (Acute Respiratory Distress Syndrome) [ ] Chronic Respiratory Failure only [ ] with Hypoxia [ ] with Hypercapnia [ ] Respiratory Insufficiency [ ] Hypoxia [x ] Other diagnosis afib with rvr no hypoxia___ [ ] Unable to determine In addition, please specify: Present on Admission (POA): [ ] Yes [x ] No [ ] Unable to determine For continuity of documentation, please document condition throughout progress notes and discharge summary. Thank You. To be completed by CDI/Coding staff for physician review: CLINICAL INDICATORS - SIGNS / SYMPTOMS / LABS / RESULTS AND LOCATION IN MR Pulse 142, Resp 25, Temp 100.2, 93% 2l/ NC// prior to oxygen saturation 91%// pt presented to ED with altered mental status off of her baseline per family. Family states that she did have a 103 fever at home and reportedly fell but did not injure herself. She is confused. Final DX: Afib w RVR, Sepsis, UTI ( ED report) 02/06 She is currently feeling short of breath ( H&P / Jagadeeshan) 02/06 RISK FACTORS / RESULTS AND LOCATION IN MR afib W/ RVR, Sepsis, UTI ( PN/ Renny) 02/09 TREATMENTS / RESULTS AND LOCATION IN MR Supplemental oxygen (02/07- 02/08) Monitoring of oxygenation status ( 02/07 present) Acute Respiratory Failure: ABG pH < 7.35 or > 7.45; Decreased oxygen saturation (<90% room air or < 95% on oxygen); PCO2 > 50 mm Hg; PO2 < 60 mm Hg; Labored or rapid respirations ARDS: Dx Criteria [[place]antis ARDS]: Respiratory symptoms within one week of a known clinical insult (e.g. shock, infection, surgery, trauma) Bilateral opacities in CXR/Chest CT not due to CHF or fluid. Thank you! CDS Signature: Faye Smiley Rn Phone #: [phone] Date: 02/11/2020 This is a permanent part of the Medical Record [facility]
[2020-02-11 11:53] VITALS: TEMP 98.6
[2020-02-11 16:24] VITALS: BP 111/72
--- NOTE | 2020-02-11 17:58 | PDOC.DS.DS ---
Provider - Provider Date of Admission: 02/07/20 16:43 Date of Discharge: 02/11/20 Admitting Provider: Angie Wilson MD Consultations: Cardiology Primary Care Physician: Ezequiel Sorto MD Course - Hospital Course Hospital Course: Patient is a very pleasant 80-year-old female who has baseline dementia who initially presented to the hospital for generalized weakness. She was noted to be in A. fib with RVR with UTI sepsis patient's urine indicated Klebsiella pneumonia which was pansensitive. Her atrial fibrillation was rate controlled and she was put on anticoagulation and seen by cardiology. She had a echocardiogram which indicated an EF 60 to 65% with moderate to severe tricuspid regurgitation. She also had a renal ultrasound which was negative. She was ambulated by physical therapy did really well will be discharged home with home health. We did talk with the patient's family member who thought that she was at her baseline. Patient did not want to go to rehabilitation anyways. Her blood cultures indicated multiorganisms in 1 bottle most likely contaminant Resuscitation Status: 02/07/20 16:35 Resuscitation Status Routine Resuscitation Status: DNAR: NO Resuscitation Discussed with: d/w patient at bedside, POA is son Mr.James Vicente - Labs Lab Results: 02/11/20 04:12 02/11/20 04:12 Abnormal Lab Results - Last 48 hrs 02/10/20 03:04: Chloride 111 H, Carbon Dioxide 20 L, BUN 38 H, Creatinine 1.17 H 02/10/20 03:04: WBC 14.2 H, RBC 3.46 L, Hgb 9.6 L, Hct 29.4 L, MPV 10.9 H, Neutrophils % 81.2 H, Lymphocytes % 11.7 L, Neutrophils # 11.5 H, Monocytes # 0.8 H 02/11/20 04:12: Chloride 108 H, Carbon Dioxide 22 L, BUN 24 H 02/11/20 04:12: WBC 12.9 H, RBC 3.76 L, Hgb 10.1 L, Hct 31.5 L, MCH 26.7 L, MCHC 31.9 L, Neutrophils % 75.4 H, Lymphocytes % 15.2 L, Neutrophils # 9.7 H, Monocytes # 0.9 H Microbiology - Entire Visit 02/07/20 15:42 Venous blood - Left Arm Blood Culture - Preliminary Gram Variable Sherwin Coagulase Neg Staphylococcus Coagulase Neg Staphylococcus#2 02/09/20 18:00 Stool C. difficile GDH Antigen & Toxins - Final 02/07/20 15:32 Venous blood - Right Hand Blood Culture - Preliminary NO GROWTH AT 48 HOURS 02/07/20 15:30 Urine Straight Catheter Urine Culture - Final Klebsiella pneumoniae ssp pneu - Physical Exam Vitals: Vital Signs (12 hours) Temp Pulse Pulse Pulse Resp BP BP 02/11/20 15:47 98.6 F 81 18 02/11/20 11:42 98.6 F 82 02/11/20 09:20 86 84 137/80 138/79 02/11/20 07:03 98.2 F 81 17 BP Pulse Ox Pulse Ox Pulse Ox 02/11/20 15:47 111/72 99 02/11/20 11:42 132/77 96 02/11/20 09:20 95 95 02/11/20 07:03 135/75 96 Weight Weight 177 lb 9.6 oz Physical Exam: The patient was seen and examined on the day of discharge. Problem - Discharge Plan Assessment: (1) Atrial fibrillation with RVR Code(s): I48.91 - UNSPECIFIED ATRIAL FIBRILLATION Status: Resolved (2) UTI (urinary tract infection) Status: Acute (3) Bacteremia Code(s): R78.81 - BACTEREMIA Status: Resolved (4) CHERYL (acute kidney injury) Code(s): N17.9 - ACUTE KIDNEY FAILURE, UNSPECIFIED Status: Resolved (5) Hyperthyroidism Code(s): E05.90 - THYROTOXICOSIS, UNSP WITHOUT THYROTOXIC CRISIS OR STORM Status: Chronic (6) Hypertension Code(s): I10 - ESSENTIAL (PRIMARY) HYPERTENSION Status: Chronic Qualifiers: Hypertension type: essential hypertension Qualified Code(s): I10 - Essential (primary) hypertension (7) Dyslipidemia Code(s): E78.5 - HYPERLIPIDEMIA, UNSPECIFIED Status: Chronic (8) GERD (gastroesophageal reflux disease) Code(s): K21.9 - GASTRO-ESOPHAGEAL REFLUX DISEASE WITHOUT ESOPHAGITIS Status: Chronic (9) Diabetes mellitus Code(s): E11.9 - TYPE 2 DIABETES MELLITUS WITHOUT COMPLICATIONS Status: Chronic Qualifiers: Diabetes mellitus type: type 2 Diabetes mellitus senior care insulin use: without senior care use Plan - Discharge Medications Prescriptions: Cefdinir 300 mg PO Q12HR #10 capsule Apixaban [Eliquis] 5 mg PO BID #60 tab Saccharomyces boulardii [Florastor] 250 mg PO DAILY #30 cap Levothyroxine Sodium [Levothyroxine] 88 mcg PO DAILY #30 capsule Metoprolol Succinate [Toprol XL] 150 mg PO BID #60 tab Home Medications: Medication Instructions Recorded Confirmed Type Allopurinol 300 mg PO DAILY 02/02/13 02/08/20 History Alprazolam [ALPRAZolam] 0.5 mg PO TID PRN 02/02/13 02/07/20 History Esomeprazole Magnesium [NexIUM] 40 mg PO DAILY 02/02/13 02/07/20 History Pregabalin [Lyrica] 150 mg PO DAILY 02/02/13 02/07/20 History metFORMIN HCl 500 mg PO QAM-WM 02/02/13 02/07/20 History traMADol HCl [Tramadol HCl] 50 mg PO TID PRN 02/02/13 02/07/20 History Amitiza 8 mg PO BID 02/07/20 02/07/20 History Estrogens, Conjugated [Premarin] 0.3 mg PO DAILY 02/07/20 02/07/20 History Hydrocortisone [Hydrocortisone 1 applic TOP BID 02/07/20 02/07/20 History 2.5% Lotion] Rosuvastatin Calcium 5 mg PO DAILY 02/07/20 02/07/20 History Apixaban [Eliquis] 5 mg PO BID #60 tab 02/11/20 Rx Cefdinir 300 mg PO Q12HR #10 capsule 02/11/20 Rx Levothyroxine Sodium 88 mcg PO DAILY #30 capsule 02/11/20 Rx [Levothyroxine] Metoprolol Succinate [Toprol XL] 150 mg PO BID #60 tab 02/11/20 Rx Saccharomyces boulardii [Florastor] 250 mg PO DAILY #30 cap 02/11/20 Rx Allergies: lisinopril Allergy (Severe, Verified 02/08/20 01:07) Anaphylaxis Angioedema atorvastatin calcium [From Lipitor] Allergy (Verified 02/08/20 01:07) meloxicam Allergy (Verified 02/08/20 01:07) ER RECORD - Discharge Instructions Discharge Instructions:: follow up with primary care for checking your thyroid in 6-8 weeks Activity:: Activity as Tolerated Nourishment:: Heart Healthy Diet Therapies:: Home Health - Follow up Plan Referrals: [facility] [Outside] (Home Health eval.) Ezequiel Sorto MD [Primary Care Provider] - 7 Days (CALL OFFICE TO SCHEDULE APPOINTMENT) Disposition: HOME HEALTH Quality - Care Measures CORE MEASURES:: N/A
== END 2020-02-11 16:40 | disposition home health service (06) | DRG 872 ==
LOC: ERS 15:04 → 2NO 16:43
PROVIDERS: ADMIT Internal Medicine; ATTEND Family Medicine
PROC: 8E0ZXY6 Isolation (ICD-10-PCS; principal; 2020-02-07)
DX: A41.59 Other Gram-negative sepsis (principal); N39.0 Urinary tract infection, site not specified; N17.9 Acute kidney failure, unspecified; K52.1 Toxic gastroenteritis and colitis; I48.91 Unspecified atrial fibrillation; Z66 Do not resuscitate; Z20.828 Contact with and (suspected) exposure to other viral communicable diseases; E05.90 Thyrotoxicosis, unspecified without thyrotoxic crisis or storm; E78.5 Hyperlipidemia, unspecified; K21.9 Gastro-esophageal reflux disease without esophagitis; E78.00 Pure hypercholesterolemia, unspecified; F41.9 Anxiety disorder, unspecified; G89.29 Other chronic pain; M54.9 Dorsalgia, unspecified; N18.9 Chronic kidney disease, unspecified; E11.22 Type 2 diabetes mellitus with diabetic chronic kidney disease; F03.90 Unspecified dementia, unspecified severity, without behavioral disturbance, psychotic disturbance, mood disturbance, and anxiety; I08.1 Rheumatic disorders of both mitral and tricuspid valves; I12.9 Hypertensive chronic kidney disease with stage 1 through stage 4 chronic kidney disease, or unspecified chronic kidney disease; T36.8X5A Adverse effect of other systemic antibiotics, initial encounter; Z88.8 Allergy status to other drugs, medicaments and biological substances; Z90.49 Acquired absence of other specified parts of digestive tract; Z90.710 Acquired absence of both cervix and uterus; Z79.84 Long term (current) use of oral hypoglycemic drugs; Z79.899 Other long term (current) drug therapy; Z79.890 Hormone replacement therapy; Z98.49 Cataract extraction status, unspecified eye
CPT/HCPCS: 36415; 36416; 51701; 71045; 76770; 80048; 80053; 80202; 81003; 81015; 82550; 83605; 83735; 84145; 84439; 84443; 84481; 84484; 85025; 87040; 87076; 87077; 87086; 87149; 87186; 87324; 87449; 87635; 93005; 93010; 93306; 96365; 96366; 96368; J0692; J0696; J3370; J3490; U0003

== ENCOUNTER 2022-01-15 10:52 | Inpatient (IN) | payer MEDICARE ==
[2022-01-15] MEDS ORDERED: Iopamidol-370 76% 500 ML 1 ML ONE (11:04)
[2022-01-15] MEDS ORDERED: Diltiazem 125 MG/25 ML ONE ×2 (11:27→11:29)
[2022-01-15 11:54] LABS: Hemoglobin 15.6 g/dL (12.0-16.0); Mean Corpuscular HGB CONC 33.1 g/dL (32.0-36.0); Mean Corpuscular Hemoglobin 28.1 pg (27.0-31.0); Mean Corpuscular Volume 85.1 fl (78.0-98.0); Mean Platelet Volume 11.9 fL (7.4-10.4); Platelet Count 262 10x3/uL (130-400); RBC Distribution Width 21.6 % (11.5-14.5); Red Blood Cell (RBC) Count 5.55 mill/uL (4.20-5.40); White Blood Cell (WBC) Count 26.4 10x3/uL (4.8-10.8)
[2022-01-15 12:24] LABS: Anisocytosis SLIGHT = 6-15 cells (100X) (0-5/hpf); Band 8 % (5-11); Lymphocytes 6 % (21-51); MDiff Complete? YES; Monocytes 3 % (0-10); Neutrophil 82 % (42-75); Platelet Morphology Comment Appears Adequate; Polychromasia SLIGHT = 2-3 cells (100X) (0-2/hpf); Schistocytes SLIGHT = 2-5 cells (100X) (0-1/hpf)
[2022-01-15] MEDS ORDERED: Azithromycin 500 MG VIAL ONE ×2 (12:42→13:14)
[2022-01-15] MEDS ORDERED: cefTRIAXone\\ROCEPHIN 2 GM VIAL ONE (12:42)
[2022-01-15 12:55] LABS: Calcium 9.5 mg/dL (7.8-10.44); Chloride 109 mmol/L (98-107); Potassium 3.3 mmol/L (3.5-5.1); Sodium 142 mmol/L (136-145)
[2022-01-15 12:57] LABS: Albumin 3.6 g/dL (3.4-4.8); Globulin 4.1 g/dL (2.4-3.5); Protein, Total 7.7 g/dL (5.8-8.1)
[2022-01-15 12:58] LABS: Anion Gap 19 mmol/L (10-20); Carbon Dioxide 17 mmol/L (23-31)
[2022-01-15 13:00] LABS: Glucose 162 mg/dL (83-110)
[2022-01-15 13:01] LABS: AST (SGOT) 18 U/L (5-34)
[2022-01-15 13:02] LABS: Alkaline Phosphatase 201 U/L (40-110)
[2022-01-15 13:03] LABS: Calc. Creatinine Clearance 0 mL/min (70-130); Estimated GFR 36
[2022-01-15 13:03] LABS: Actual Bicarbonate (HCO3v) 17 mEq/L (22-28); Analyzer IN Cardio ER; Base Excess -5.8 mEq/L (-2.0 to +3.0); Calcium, Ionized (venous) 0.99 mmol/L (1.16-1.32); Chloride (VBG) 108 mmol/L (98-106); Hemoglobin (Hb) 15.1 g/dL (11.7-16.1); Potassium (VBG) 3.58 mmol/L (3.70-5.30); Sodium 141.3 mmol/L (133-146); pH (venous) 7.41 (7.32-7.43)
[2022-01-15 13:04] LABS: BUN (Urea Nitrogen) 38 mg/dL (9.8-20.1)
[2022-01-15 13:06] LABS: ALT (SGPT) Less than 7 U/L (8-55); CK (CPK) 157 U/L (29-168)
[2022-01-15 13:11] LABS: Bacteria/HPF 4+ HPF (None Seen); Bilirubin Negative (Negative); Blood, Urine Negative (Negative); Clarity Turbid (Clear); Glucose, Urine (Dipstick) Normal (Negative); Ketone, Urine Trace mg/dL (Negative); Leukocyte Negative Leu/uL (Negative); Nitrite Negative (Negative); Protein, Urine (Dipstick) 30 mg/dL (Neg-Trace); RBC/HPF 0-3 HPF (0-3); Specific Gravity, Urine 1.025 (1.002-1.036); Squamous Epithelial 0-3 HPF (0-3); WBC/HPF 0-3 HPF (0-3); pH, Urine 5.5 (5.0-9.0)
[2022-01-15] MEDS ORDERED: Lactated Ringer's 1,000 ML IV SCH (15:00)
[2022-01-15 15:04] LABS: Lactic Acid 4.9 mmol/L (0.5-2.2)
[2022-01-15] MEDS ORDERED: Senokot S 8.6-50 MG TAB PO PRN (15:24)
[2022-01-15] MEDS ORDERED: HYDROcodone/Acetaminophen 5/325 mg Tablet PO PRN (15:24)
[2022-01-15] MEDS ORDERED: Acetaminophen 325 MG TAB PO PRN (15:24)
[2022-01-15] MEDS ORDERED: Cefepime 2 GM in Sodium Chloride 0.9% 100 ML IVPB SCH (15:45)
[2022-01-15] MEDS ORDERED: Diltiazem 125 MG in Sodium Chloride 0.9% 100 ML IVPB SCH (17:30)
[2022-01-15] MEDS ORDERED: VANCOMYCIN 1.75 GM/500 ML BAG 1.75 GM in Premix Bag 1 BAG IVPB SCH (20:00)
[2022-01-15] MEDS: Heparin 5,000 UNITS/ML VIAL SC SCH (20:32)
[2022-01-15] MEDS ORDERED: Vancomycin 1 GM in Premix Bag 1 BAG IVPB SCH (21:00)
[2022-01-16 05:25] LABS: Anion Gap 13 mmol/L (10-20); BUN (Urea Nitrogen) 35 mg/dL (9.8-20.1); Calc. Creatinine Clearance 39 mL/min (70-130); Calcium 8.7 mg/dL (7.8-10.44); Carbon Dioxide 18 mmol/L (23-31); Chloride 112 mmol/L (98-107); Estimated GFR 48; Glucose 137 mg/dL (83-110); Potassium 3.3 mmol/L (3.5-5.1); Sodium 140 mmol/L (136-145)
[2022-01-16 05:58] LABS: Band 5 % (5-11); Hemoglobin 12.4 g/dL (12.0-16.0); Lymphocytes 5 % (21-51); MDiff Complete? YES; Mean Corpuscular HGB CONC 30.3 g/dL (32.0-36.0); Mean Corpuscular Hemoglobin 26.1 pg (27.0-31.0); Mean Corpuscular Volume 86.1 fl (78.0-98.0); Mean Platelet Volume 10.4 fL (7.4-10.4); Monocytes 7 % (0-10); Neutrophil 83 % (42-75); Platelet Count 177 10x3/uL (130-400); Platelet Morphology Comment Appears Adequate; RBC Distribution Width 18.2 % (11.5-14.5); RBC Morphology Normal; Red Blood Cell (RBC) Count 4.75 mill/uL (4.20-5.40); White Blood Cell (WBC) Count 24.8 10x3/uL (4.8-10.8)
[2022-01-16] MEDS ORDERED: Potassium Chloride 40 MEQ in Sodium Chloride 0.9% 250 ML 250 ML IVPB SCH (09:15)
[2022-01-16] MEDS: Heparin 5,000 UNITS/ML VIAL SC SCH ×3 (09:21→21:11)
[2022-01-16] MEDS: Lactated Ringer's 1,000 ML IV SCH ×2 (09:21→22:24)
[2022-01-16] MEDS ORDERED: Cefepime 1 GM in Sodium Chloride 0.9% 100 ML IVPB SCH (17:00)
[2022-01-16] MEDS ORDERED: Amiodarone 450 MG in Dextrose 5% in Water 250 ML IVPB SCH (17:45)
[2022-01-16] MEDS ORDERED: Furosemide 40 MG/4 ML VIAL ONE (17:52)
[2022-01-16] MEDS ORDERED: Amiodarone 150 MG, Admixture Fee 1 EACH in Dextrose 5% in Water 100 ML IVPB SCH (18:30)
[2022-01-16] MEDS ORDERED: Furosemide 20 MG/2 ML VIAL SLOW IVP SCH (18:45)
[2022-01-16 19:05] LABS: ALT (SGPT) 7 U/L (8-55); AST (SGOT) 17 U/L (5-34); Albumin 3.3 g/dL (3.4-4.8); Alkaline Phosphatase 227 U/L (40-110); Bilirubin, Direct 0.4 mg/dL (0.1-0.3); Bilirubin, Total 0.8 mg/dL (0.2-1.2); Magnesium 1.5 mg/dL (1.6-2.6)
[2022-01-16] MEDS ORDERED: EPINEPHrine 1 MG/10 ML Abboject SYRINGE ONE (20:19)
[2022-01-16] MEDS ORDERED: EPINEPHrine 4 MG in Dextrose 5% in Water 250 ML IV SCH (20:30)
[2022-01-16 20:31] LABS: Actual Bicarbonate (HCO3a) 15.2 mEq/L (22-28); CO2 Tension 55.7 mmHg (35.0-45.0); Calcium, Ionized (arterial) 1.56 mmol/L (1.12-1.30); Carboxyhemoglobin (COHb) 0.3 gm% (0.0-3.0); Hemoglobin (Hb) 11.4 g/dL (12.0-16.0); O2 Tension (PaO2), arterial 77.9 mmHg (> 60.0); Potassium - ABG Lab 3.67 mmol/L (3.70-5.30)
[2022-01-16 20:33] LABS: Puncture Site R FEM; pH, Arterial 7.05 (7.35-7.45)
[2022-01-16 20:34] LABS: ALV-art Gradient 565.475 mmHg (0-20)
[2022-01-16 20:57] LABS: Vancomycin, Random 10.6 ug/mL (See Comment)
[2022-01-16] MEDS ORDERED: Digoxin 0.5 MG/2 ML AMP SLOW IVP SCH (21:00)
[2022-01-16] MEDS ORDERED: Sodium Bicarb 50 MEQ/50 ML VIAL IVP SCH (21:00)
[2022-01-16] MEDS ORDERED: Rocuronium Bromide 10 MG/ML (10ML VIAL) ONE (21:08)
[2022-01-16] MEDS: Sodium Bicarbonate 150 MEQ in Dextrose 5% in Water 1,000 ML IV SCH (21:15)
[2022-01-16] MEDS ORDERED: Vancomycin 1 GM in Premix Bag 1 BAG IVPB SCH (22:00)
[2022-01-16 23:19] LABS: Hemoglobin 11.9 g/dL (12.0-16.0); Mean Corpuscular Hemoglobin 27.3 pg (27.0-31.0); Mean Corpuscular Volume 85.2 fl (78.0-98.0); RBC Distribution Width 18.8 % (11.5-14.5); Red Blood Cell (RBC) Count 4.36 mill/uL (4.20-5.40); White Blood Cell (WBC) Count 33.5 10x3/uL (4.8-10.8)
[2022-01-16 23:20] LABS: Lactic Acid 6.5 mmol/L (0.5-2.2)
[2022-01-16 23:24] LABS: Troponin I 0.046 ng/mL (< 0.028)
[2022-01-16 23:30] LABS: Calcium 9.1 mg/dL (7.8-10.44); Chloride 110 mmol/L (98-107); Potassium 3.3 mmol/L (3.5-5.1); Sodium 143 mmol/L (136-145)
[2022-01-16 23:31] LABS: Glucose 348 mg/dL (83-110)
[2022-01-16 23:32] LABS: Anion Gap 20 mmol/L (10-20); Carbon Dioxide 16 mmol/L (23-31)
[2022-01-16 23:34] LABS: Calc. Creatinine Clearance 27 mL/min (70-130); Estimated GFR 31
[2022-01-16 23:35] LABS: BUN (Urea Nitrogen) 40 mg/dL (9.8-20.1)
[2022-01-16 23:40] LABS: MDiff Complete? YES; Mean Platelet Volume 13.3 fL (7.4-10.4); Platelet Count 164 10x3/uL (130-400)
[2022-01-16 23:41] LABS: Anisocytosis SLIGHT = 6-15 cells (100X) (0-5/hpf); Band 7 % (5-11); Burr Cells SLIGHT = 2-5 cells (100X) (0-1/hpf); Eosinophils 1 % (0-10); Large Platelets SLIGHT; Lymphocytes 3 % (21-51); Monocytes 4 % (0-10); Neutrophil 85 % (42-75); Platelet Morphology Comment Appears Adequate; Target Cells SLIGHT = 2-5 cells (100X) (0-1/hpf); Tear Drops SLIGHT = 2-5 cells (100X) (0-1/hpf)
[2022-01-17] MEDS ORDERED: HumaLOG 300 UNITS/3 ML VIAL SC PRN ×2 (00:06)
[2022-01-17] MEDS ORDERED: Dextrose 50% Abboject 50 ML SYRINGE SLOW IVP PRN (00:06)
[2022-01-17] MEDS ORDERED: Dextrose 5% in Water 1,000 ML IV PRN (00:06)
[2022-01-17] MEDS ORDERED: Potassium Chloride 20 MEQ in Premix Bag 1 BAG IVPB SCH (00:15)
[2022-01-17 02:04] LABS: Lactic Acid 6.6 mmol/L (0.5-2.2)
[2022-01-17] MEDS ORDERED: Midazolam HCl 2 mg/2 ml Vial SLOW IVP PRN (05:27)
[2022-01-17] MEDS ORDERED: Fentanyl CADD 100 ML IV SCH (05:30)
[2022-01-17] MEDS ORDERED: Fentanyl BOLUS 250 ML IVPB PRN (05:30)
[2022-01-17] MEDS ORDERED: Propofol 1,000 MG/100 ML VIAL IV PRN (05:30)
[2022-01-17] MEDS ORDERED: Ventilator Sedation Protocol 1 EACH FS SCH (05:30)
[2022-01-17] MEDS ORDERED: DISCONTINUE PREVIOUS NARCOTIC PAIN MEDICATIONS AND BENZODIAZEPINES FS SCH (05:30)
[2022-01-17] MEDS ORDERED: Propofol BOLUS 1,000 MG/100 ML VIAL IV PRN (05:30)
[2022-01-17] MEDS ORDERED: Morphine 4 MG/ML VIAL SLOW IVP PRN (05:30)
[2022-01-17] MEDS: Levothyroxine Sodium 88 MCG TAB PO SCH ×2 (06:28→06:36)
[2022-01-17 07:29] VITALS: BMI 24.1
[2022-01-17 07:30] VITALS: BP 146/96
[2022-01-17] MEDS: Digoxin 0.5 MG/2 ML AMP SLOW IVP SCH ×2 (08:21→10:17)
[2022-01-17] MEDS ORDERED: Rosuvastatin 5 MG TAB PO SCH (09:00)
[2022-01-17] MEDS ORDERED: Pantoprazole 40 MG VIAL IVP SCH (09:00)
[2022-01-17] MEDS ORDERED: NIFEdipine XL 60 MG TAB PO SCH (09:00)
[2022-01-17] MEDS: Sodium Bicarbonate 150 MEQ in Dextrose 5% in Water 1,000 ML IV SCH (10:18)
[2022-01-17] MEDS: Heparin 5,000 UNITS/ML VIAL SC SCH (10:54)
[2022-01-17] MEDS: Lactated Ringer's 1,000 ML IV SCH (11:59)
[2022-01-17] MEDS ORDERED: Digoxin 0.5 MG/2 ML AMP SLOW IVP SCH (12:00)
[2022-01-17 16:24] VITALS: TEMP 99.3
[2022-01-18] MEDS ORDERED: Digoxin 0.5 MG/2 ML AMP SLOW IVP SCH (09:00)
== END 2022-01-17 16:44 | disposition expired | DRG 871 ==
LOC: ERS 10:52 → 2NO 14:06 → CCU 01-16 19:35
PROVIDERS: ADMIT Student in an Organized Health Care Education/Training Program; ATTEND Family Medicine
PROC: 0BH17EZ Insertion of Endotracheal Airway into Trachea, Via Natural or Artificial Opening (ICD-10-PCS; principal; 2022-01-16)
PROC: 5A1935Z Respiratory Ventilation, Less than 24 Consecutive Hours (ICD-10-PCS; 2022-01-16)
DX: A41.9 Sepsis, unspecified organism (principal); G93.41 Metabolic encephalopathy; J18.9 Pneumonia, unspecified organism; J96.01 Acute respiratory failure with hypoxia; R65.21 Severe sepsis with septic shock; I26.99 Other pulmonary embolism without acute cor pulmonale; C79.51 Secondary malignant neoplasm of bone; M84.58XA Pathological fracture in neoplastic disease, other specified site, initial encounter for fracture; N17.9 Acute kidney failure, unspecified; Z66 Do not resuscitate; Z51.5 Encounter for palliative care; F03.90 Unspecified dementia, unspecified severity, without behavioral disturbance, psychotic disturbance, mood disturbance, and anxiety; Z20.822 Contact with and (suspected) exposure to COVID-19; K21.9 Gastro-esophageal reflux disease without esophagitis; I10 Essential (primary) hypertension; E03.9 Hypothyroidism, unspecified; C80.1 Malignant (primary) neoplasm, unspecified; I48.0 Paroxysmal atrial fibrillation; E83.42 Hypomagnesemia; E11.65 Type 2 diabetes mellitus with hyperglycemia; E87.6 Hypokalemia; E66.9 Obesity, unspecified; I50.9 Heart failure, unspecified; R57.0 Cardiogenic shock; I46.8 Cardiac arrest due to other underlying condition; Z88.8 Allergy status to other drugs, medicaments and biological substances; Z79.01 Long term (current) use of anticoagulants; Z68.24 Body mass index [BMI] 24.0-24.9, adult
CPT/HCPCS: 36415; 36416; 51701; 70450; 71045; 71260; 72125; 74177; 80048; 80053; 80076; 80202; 81003; 81015; 82550; 82805; 83605; 83735; 84145; 84443; 84484; 85025; 85730; 87040; 87086; 93005; 93010; 93306; 94002; 94003; 96365; 96366; 96368; 96376; C9113; J0171; J0282; J0456; J0692; J0696; J1160; J1644; J1815; J1940; J2704; J3010; J3370; J3480; J3490; J7050; J7070; J7120; Q9967; U0003; U0005